=== PATIENT | female | born 1960 | race Hispanic/Latino ===

== ENCOUNTER 2017-03-20 18:20 | Emergency (ER) | payer MEDICARE ==
[2017-03-20 18:21] VITALS: BMI 29.9
[2017-03-20 18:32] VITALS: BP 154/90; PULSE 76; RESP 17; TEMP 97.9; O2SAT 96
--- NOTE | 2017-03-20 19:30 | ED PDOC ---
Arrival/HPI - General Chief Complaint: ENT Problem Time Seen by Provider: 03/20/17 19:09 - History of Present Illness Narrative History of Present Illness (Text): 03/20/17 19:30 56-year-old female with a history of recurrent nosebleeds. Presents emergency Department with epistaxis from her left nostril. Patient states that nosebleed has resolved while she was awaiting to be examined. Patient denies any signs or symptoms of anemia. Denies shortness of breath, denies coughing, denies any other complaints. Patient states that she does not want any Afrin or other drops because she is afraid he may elevate her blood pressure. Patient states that she has an ear nose and throat doctor with whom she will be able to obtain follow-up in the next few days. Past Medical History - Provider Review Nursing Documentation Reviewed: Yes - Infectious Disease Hx of Infectious Diseases: None - Tetanus Immunization Tetanus Immunization: Unknown - Reproductive Menopause: Yes - Cardiac Hx Cardiac Disorders: Yes Hx Hypertension: Yes - Pulmonary Hx Respiratory Disorders: No - Neurological Hx Neurological Disorder: Yes HX Cerebrovascular Accident: Yes - HEENT Hx HEENT Disorder: (WEARS RX GLASSES FOR READING) Hx Epistaxis: Yes - Renal Hx Renal Disorder: No - Endocrine/Metabolic Hx Endocrine Disorders: No - Hematological/Oncological Hx Blood Disorders: No - Integumentary Hx Dermatological Disorder: Yes Other/Comment: 3 fatty cysts removed from right parietal area - Musculoskeletal/Rheumatological Hx Musculoskeletal Disorders: No Hx Falls: No - Gastrointestinal Hx Gastrointestinal Disorders: No - Genitourinary/Gynecological Hx Genitourinary Disorders: No - Psychiatric Hx Psychophysiologic Disorder: Yes (SLEEPLESSNESS) Hx Anxiety: Yes Hx Depression: No Hx Emotional Abuse: No Hx Physical Abuse: No Hx Substance Use: No - Past Surgical History Past Surgical History: No Previous - Surgical History Other/Comment: 3 fatty cysts removed from right parietal area - Suicidal Assessment Feels Threatened In Home Enviroment: No Family/Social History Family/Social History: Unknown Family HX Smoking Status: Never Smoked Hx Alcohol Use: No Hx Substance Use: No Hx Substance Use Treatment: No Allergies/Home Meds Allergies/Adverse Reactions: Allergies No Known Allergies Allergy (Verified 03/20/17 18:27) Home Medications: Home Meds Medication Instructions Recorded Confirmed Alprazolam [Xanax] 0.5 mg PO BID 04/12/13 01/25/15 Zolpidem Tartrate [Ambien] 10 mg PO HS 04/12/13 03/20/17 Aspirin [Aspirin Adult Low 81 mg PO DAILY 09/18/13 03/20/17 Strength] Aliskiren/Hydrochlorothiazide 1 tab PO DAILY 04/05/14 03/20/17 [Tekturna Hct 300 mg-12.5 mg] Clonidine HCl/Pf [Clonidine HCl] 0.1 mg PO TID 04/05/14 03/20/17 Metoprolol Tartrate [Metoprolol 100 mg PO BID 04/05/14 03/20/17 Tartrate] Review of Systems - Physician Review All systems were reviewed & negative as marked: Yes - Review of Systems ENT: Other (Epistaxis). absent: Sore Throat, Rhinorrhea, Sinus Congestion Respiratory: absent: SOB, Cough, Sputum Cardiovascular: absent: Chest Pain, Palpitations Physical Exam Vital Signs Reviewed: Yes Vital Signs Temp Pulse Resp BP Pulse Ox 03/20/17 18:30 97.9 F 76 17 154/90 H 96 Temperature: Afebrile Blood Pressure: Hypertensive (Asymptomatic) Pulse: Regular Respiratory Rate: Normal Appearance: Positive for: Well-Appearing Pain Distress: None Mental Status: Positive for: Alert and Oriented X 3 - Systems Exam Head: Present: Atraumatic, Normocephalic Pupils: Present: PERRL. No: Sluggish, Non-Reactive Conjunctiva: Present: Normal. No: Injected Mouth: Present: Moist Mucous Membranes. No: Dry, Drooling Pharnyx: No: ERYTHEMA, EXUDATE, Muffled/Hoarse Voice, Soft Palate/Uvular Edema Nose (External): No: Abrasion, Contusion, Laceration Nose (Internal): Present: No Active Bleeding. No: Engorged, Edematous, Boggy, Septal Hematoma, Epistaxis Medical Decision Making ED Course and Treatment: 03/20/17 19:36 56-year-old female with history of epistaxis, in the emergency Department with resolved nosebleed. No acute findings on physical examination. Patient will be discharged home with instructions to follow-up with her ear nose and throat physician. Patient is asymptomatic and states that she feels comfortable being discharged at this time. Pt states she understands to return to the ER right away for new or worsening symptoms or for inability to f/u with PMD or specialist as instructed. Patient states that she fully agrees with and understands discharge instructions. States that she agrees with the plan and disposition. Verbalized and repeated discharge instructions and plan. I have given the patient opportunity to ask any additional questions. Disposition/Present on Arrival - Present on Arrival Any Indicators Present on Arrival: No History of DVT/PE: No History of Uncontrolled Diabetes: No Urinary Catheter: No History of Decub. Ulcer: No History Surgical Site Infection Following: None - Disposition Have Diagnosis and Disposition been Completed?: Yes Diagnosis: Epistaxis Disposition: HOME/ ROUTINE Disposition Time: 19:27 Patient Plan: Discharge Condition: GOOD Discharge Instructions (ExitCare): Nosebleed (ED) Additional Instructions: PLEASE RETURN TO THE EMERGENCY DEPARTMENT FOR NEW OR WORSENING SYMPTOMS. RETURN RIGHT AWAY IF YOU CANNOT FOLLOW UP WITH YOUR PRIMARY CARE DOCTOR, CLINIC, OR SPECIALIST IN 1-2 DAYS. Referrals: Niels Dean MD [Primary Care Provider] - Follow up with primary Francisco Arenas DO [Staff Provider] - Follow up with primary
== END 2017-03-20 19:41 | disposition home or self-care (01) ==
LOC: ED 18:20
DX: R04.0 Epistaxis (principal); I10 Essential (primary) hypertension

== ENCOUNTER 2017-03-21 00:50 | Emergency (ER) | payer MEDICARE ==
[2017-03-21 01:02] VITALS: BMI 39.9
[2017-03-21 01:08] VITALS: BP 118/84; PULSE 73; RESP 18; TEMP 98; O2SAT 98
[2017-03-21] MEDS ORDERED: Amoxicillin-Clav 875-125 mg Tab PO STA (01:35)
--- NOTE | 2017-03-21 01:35 | ED PDOC ---
Arrival/HPI - General Chief Complaint: ENT Problem Time Seen by Provider: 03/21/17 00:52 - History of Present Illness Narrative History of Present Illness (Text): 03/21/17 02:17 56-year-old female in emergency department with recurrent nosebleed on the left. Patient states that mostly resolved with applying pressure. She states that she is concerned that it will occur again, and asking for nasal packing. Denies any difficulty breathing, denies any other complaints. Past Medical History - Provider Review Nursing Documentation Reviewed: Yes - Infectious Disease Hx of Infectious Diseases: None - Tetanus Immunization Tetanus Immunization: Unknown - Cardiac Hx Cardiac Disorders: Yes Hx Hypertension: Yes - Pulmonary Hx Respiratory Disorders: No - Neurological Hx Neurological Disorder: Yes HX Cerebrovascular Accident: Yes - HEENT Hx HEENT Disorder: (WEARS RX GLASSES FOR READING) Hx Epistaxis: Yes Other/Comment: Deviated septum - Renal Hx Renal Disorder: No - Endocrine/Metabolic Hx Endocrine Disorders: No - Hematological/Oncological Hx Blood Disorders: No - Integumentary Hx Dermatological Disorder: Yes Other/Comment: 3 fatty cysts removed from right parietal area - Musculoskeletal/Rheumatological Hx Musculoskeletal Disorders: No Hx Falls: No - Gastrointestinal Hx Gastrointestinal Disorders: No - Genitourinary/Gynecological Hx Genitourinary Disorders: No - Psychiatric Hx Psychophysiologic Disorder: Yes (SLEEPLESSNESS) Hx Anxiety: Yes Hx Depression: No Hx Emotional Abuse: No Hx Physical Abuse: No Hx Substance Use: No - Past Surgical History Past Surgical History: No Previous - Surgical History Other/Comment: 3 fatty cysts removed from right parietal area - Suicidal Assessment Feels Threatened In Home Enviroment: No Family/Social History Family/Social History: Unknown Family HX Smoking Status: Never Smoked Hx Alcohol Use: No Hx Substance Use: No Hx Substance Use Treatment: No Allergies/Home Meds Allergies/Adverse Reactions: Allergies No Known Allergies Allergy (Verified 03/20/17 18:27) Home Medications: Home Meds Medication Instructions Recorded Confirmed Alprazolam [Xanax] 0.5 mg PO BID 04/12/13 01/25/15 Zolpidem Tartrate [Ambien] 10 mg PO HS 04/12/13 03/20/17 Aspirin [Aspirin Adult Low 81 mg PO DAILY 09/18/13 03/20/17 Strength] Aliskiren/Hydrochlorothiazide 1 tab PO DAILY 04/05/14 03/20/17 [Tekturna Hct 300 mg-12.5 mg] Clonidine HCl/Pf [Clonidine HCl] 0.1 mg PO TID 04/05/14 03/20/17 Metoprolol Tartrate [Metoprolol 100 mg PO BID 04/05/14 03/20/17 Tartrate] Physical Exam - Physical Exam Narrative Physical Exam (Text): - Review of Systems Constitutional: Normal. absent: Fatigue, Weight Change, Fevers Eyes: Normal ENT: Epistaxis. denies sore throat, denies tristhmus Respiratory: Normal. absent: SOB, Cough, Sputum Cardiovascular: absent: Chest Pain, Palpitations, Syncope Gastrointestinal: Normal. absent: Abdominal Pain, Diarrhea, Nausea, Vomiting Genitourinary: Normal. absent: Dysuria, Frequency, Hematuria, vaginal bleeding Musculoskeletal: Normal. absent: Arthralgias, Back Pain, Neck Pain Skin: no rashes, no erythema Neurological: absent: Focal Weakness Endocrine: Normal Hemo/Lymphatic: Normal Psychiatric: No suicidal or homicidal ideations Physical exam Patient appears age appropriate in no distress, speaking full sentences without difficulty - Systems Exam Head: Present: Atraumatic, Normocephalic Pupils: Present: PERRL Extroacular Muscles: Present: EOMI Conjunctiva: Present: Normal Mouth: Present: Moist Mucous Membranes Neck: Present: Normal Range of Motion. No: MIDLINE TENDERNESS, Paraspinal Tenderness Respiratory/Chest: Present: Clear to Auscultation, Good Air Exchange. No: Respiratory Distress, Accessory Muscle Use, Tachypneic Cardiovascular: Present: Regular Rate and Rhythm, Normal S1, S2, Peripheal Pulses Present. No: Murmurs Abdomen: Present: Normal Bowel Sounds. No: Tenderness, Distention, Peritoneal Signs, Rebound, Guarding Back: Present: Normal Inspection. No: Midline Tenderness, Paraspinal Tenderness Upper Extremity: Present: Normal Inspection. No: Cyanosis, Edema Lower Extremity: Present: Normal Inspection. No: Edema Neurological: Present: GCS=15, Speech Normal, cranial nerves II through XII fully intact with no cerebellar abnormality, neurosensory fully intact. No focal neurological deficits. Skin: Present: Warm, Dry, Normal Color. No: Rashes Lymphatic: Present: OX3, NI, NC Psychiatric: Present: Alert, Oriented x 3, Normal Insight, Normal Concentration Vital Signs Reviewed: Yes Vital Signs Temp Pulse Resp BP Pulse Ox 03/21/17 00:51 98.0 F 73 18 118/84 98 Temperature: Afebrile Blood Pressure: Normal Pulse: Regular Respiratory Rate: Normal Appearance: Positive for: Well-Appearing Pain Distress: None Mental Status: Positive for: Alert and Oriented X 3 - Systems Exam Nose (External): Present: Atraumatic. No: Abrasion, Contusion Nose (Internal): Present: No Active Bleeding, Other (Left nare with dried blood , no active bleeding). No: Rhinorrhea, Epistaxis Medical Decision Making ED Course and Treatment: Patient with recurrent nosebleed. This is patient's second visit for similar complaint today. Patient is asking for nasal packing. Patient states that she has an ENT physician with whom she will follow-up. Nasal packing placed No active bleeding Dose of Augmentin along with a prescription provided in the emergency department Patient states she feels comfortable being discharged home with outpatient follow-up Pt states she understands to return to the ER right away for new or worsening symptoms or for inability to f/u with PMD or specialist as instructed. Patient states that she fully agrees with and understands discharge instructions. States that she agrees with the plan and disposition. Verbalized and repeated discharge instructions and plan. I have given the patient opportunity to ask any additional questions. PROCEDURE: EPISTAXIS MANAGEMENT Performed by the emergency provider Consent: Informed consent was obtained after discussion of the risks, benefits, and alternatives to the procedure. Timeout: A timeout to verify the correct patient, procedure, and site was performed immediately prior to the procedure. Indication: Nasal bleeding control Location: {left/right} naris Medication: Bleeding Source: {POSTERIOR / MIDDLE / ANTERIOR / Septal} Cautery: Packing: Post-procedure: Good hemostasis. The patient was observed following procedure and no repeat episode of bleeding was noted. Patient tolerated the procedure well with no immediate complications. - Medication Orders Current Medication Orders: Discontinued Medications Amoxicillin/Clavulanate Potassium (Augmentin 875 Mg-125 Mg Tab) 1 tab PO STAT STA PRN Reason: Protocol Stop: 03/21/17 01:36 Last Admin: 03/21/17 01:50 Dose: 1 tab Disposition/Present on Arrival - Present on Arrival Any Indicators Present on Arrival: No History of DVT/PE: No History of Uncontrolled Diabetes: No Urinary Catheter: No History of Decub. Ulcer: No History Surgical Site Infection Following: None - Disposition Have Diagnosis and Disposition been Completed?: Yes Diagnosis: Epistaxis Disposition: HOME/ ROUTINE Disposition Time: 01:32 Patient Plan: Discharge Condition: GOOD Discharge Instructions (ExitCare): Nosebleed (ED) Additional Instructions: Please follow-up with your ear nose and throat physician or primary physician for packing removal in the next 48 hours Take Antibiotics as prescribed Return to the emergency Department right away for recurrent nosebleeds, difficulty breathing, pain, or if you are unable to follow-up as instructed. Return to the ER right away for any new or worsening symptoms Prescriptions: Amoxicillin/Clavulanate [Augmentin 875 MG-125 MG] 1 tab PO BID #13 tab Referrals: Francisco Arenas DO [Staff Provider] - Follow up with primary José Miguel Palomares DO [Staff Provider] - Follow up with primary Angel Quezada DO [Doctor Osteopathy] - Follow up with primary
== END 2017-03-21 02:00 | disposition home or self-care (01) ==
LOC: ED 00:50
DX: R04.0 Epistaxis (principal)

== ENCOUNTER 2017-03-21 02:49 | Emergency (ER) | payer MEDICARE ==
[2017-03-21 02:49] VITALS: BMI 39.9
[2017-03-21 03:16] LABS: ADD MANUAL DIFF? NO
[2017-03-21 03:19] LABS: BASO # 0.03 K/mm3 (0.0-2.0); BASO % 0.3 % (0.0-3.0); EOS # 0.1 (0.0-0.7); EOS % 1.4 % (1.5-5.0); GRAN # 6.23 (1.4-6.5); GRAN % 70.8 % (50.0-68.0); HEMATOCRIT 42.7 % (36.0-48.0); LYMPH # 1.9 (1.2-3.4); MEAN CELL VOLUME 87.5 fL (80.0-105.0); MEAN CORPUSCULAR HEMOGLOBIN 31.1 pg (25.0-35.0); MEAN CORPUSCULAR HGB CONC 35.6 g/dl (31.0-37.0); MONO # 0.5 (0.1-0.6); MONO % 5.5 % (1.0-6.0); PLATELET COUNT 261 10^3/uL (120.0-450.0); RED CELL DISTRIBUTION WIDTH 13.9 % (11.5-14.5); WHITE BLOOD COUNT 8.8 10^3/ul (4.5-11.0)
[2017-03-21 03:22] VITALS: RESP 17; TEMP 98.2
[2017-03-21 03:28] LABS: ALKALINE PHOSPHATASE 58 U/L (38-133); ALT/SGPT 91 U/L (7-56); AST/SGOT 55 U/L (15-39); BLOOD UREA NITROGEN 21 mg/dL (7-21); CALCIUM 9.6 mg/dL (8.4-10.5); CARBON DIOXIDE 30 mmol/L (21-33); CHLORIDE 99 mmol/L (98-107); GFR AFRICAN-AMERICAN > 60; GLUCOSE,RANDOM 116 mg/dL (70-110); POTASSIUM 3.8 mmol/L (3.6-5.0); SODIUM 138 mmol/L (132-148); TOTAL PROTEIN 8.5 g/dL (5.8-8.3)
[2017-03-21 03:32] LABS: INR 1.13 (0.93-1.08); PARTIAL THROMBOPLASTIN TIME 29.5 Seconds (23.7-30.8)
--- NOTE | 2017-03-21 03:46 | ED PDOC ---
Arrival/HPI - General Chief Complaint: ENT Problem Time Seen by Provider: 03/21/17 02:55 - History of Present Illness Narrative History of Present Illness (Text): 03/21/17 03:42 56-year-old female presents emergency Department with left hemolacria after left nasal packing placement. Patient states she has no epistaxis at this time. Patient has no other complaints. Denies shortness of breath or pain or difficulty swallowing. Symptom Onset: Sudden Symptom Course: Unchanged Activities at Onset: Rest Context: Home Past Medical History - Provider Review Nursing Documentation Reviewed: Yes - Infectious Disease Hx of Infectious Diseases: None - Tetanus Immunization Tetanus Immunization: Unknown - Cardiac Hx Cardiac Disorders: Yes Hx Hypertension: Yes - Pulmonary Hx Respiratory Disorders: No - Neurological Hx Neurological Disorder: Yes HX Cerebrovascular Accident: Yes - HEENT Hx HEENT Disorder: (WEARS RX GLASSES FOR READING) Hx Epistaxis: Yes Other/Comment: Deviated septum - Renal Hx Renal Disorder: No - Endocrine/Metabolic Hx Endocrine Disorders: No - Hematological/Oncological Hx Blood Disorders: No - Integumentary Hx Dermatological Disorder: Yes Other/Comment: 3 fatty cysts removed from right parietal area - Musculoskeletal/Rheumatological Hx Musculoskeletal Disorders: No Hx Falls: No - Gastrointestinal Hx Gastrointestinal Disorders: No - Genitourinary/Gynecological Hx Genitourinary Disorders: No - Psychiatric Hx Psychophysiologic Disorder: Yes (SLEEPLESSNESS) Hx Anxiety: Yes Hx Depression: No Hx Emotional Abuse: No Hx Physical Abuse: No Hx Substance Use: No - Past Surgical History Past Surgical History: No Previous - Surgical History Other/Comment: 3 fatty cysts removed from right parietal area - Suicidal Assessment Feels Threatened In Home Enviroment: No Family/Social History - Physician Review Nursing Documentation Reviewed: Yes Family/Social History: No Known Family HX Smoking Status: Never Smoked Hx Alcohol Use: No Hx Substance Use: No Hx Substance Use Treatment: No Allergies/Home Meds Allergies/Adverse Reactions: Allergies No Known Allergies Allergy (Verified 03/20/17 18:27) Home Medications: Home Meds Medication Instructions Recorded Confirmed Alprazolam [Xanax] 0.5 mg PO BID 04/12/13 01/25/15 Zolpidem Tartrate [Ambien] 10 mg PO HS 04/12/13 03/20/17 Aspirin [Aspirin Adult Low 81 mg PO DAILY 09/18/13 03/20/17 Strength] Aliskiren/Hydrochlorothiazide 1 tab PO DAILY 04/05/14 03/20/17 [Tekturna Hct 300 mg-12.5 mg] Clonidine HCl/Pf [Clonidine HCl] 0.1 mg PO TID 04/05/14 03/20/17 Metoprolol Tartrate [Metoprolol 100 mg PO BID 04/05/14 03/20/17 Tartrate] Review of Systems - Physician Review All systems were reviewed & negative as marked: Yes Physical Exam - Physical Exam Narrative Physical Exam (Text): - Review of Systems Constitutional: Normal. absent: Fatigue, Weight Change, Fevers Eyes: hemolacria ENT: denies sore throat, denies tristhmus Respiratory: Normal. absent: SOB, Cough, Sputum Cardiovascular: absent: Chest Pain, Palpitations, Syncope Gastrointestinal: Normal. absent: Abdominal Pain, Diarrhea, Nausea, Vomiting Genitourinary: Normal. absent: Dysuria, Frequency, Hematuria, vaginal bleeding Musculoskeletal: Normal. absent: Arthralgias, Back Pain, Neck Pain Skin: no rashes, no erythema Neurological: absent: Focal Weakness Endocrine: Normal Hemo/Lymphatic: Normal Psychiatric: No suicidal or homicidal ideations Physical exam Patient appears age appropriate in no distress, speaking full sentences without difficulty - Systems Exam Head: Present: Atraumatic, Normocephalic Pupils: Present: PERRL Extroacular Muscles: Present: EOMI Conjunctiva: Present: Trace blood present around upper and lower eyelids Mouth: Present: Moist Mucous Membranes Neck: Present: Normal Range of Motion. No: MIDLINE TENDERNESS, Paraspinal Tenderness Respiratory/Chest: Present: Clear to Auscultation, Good Air Exchange. No: Respiratory Distress, Accessory Muscle Use, Tachypneic Cardiovascular: Present: Regular Rate and Rhythm, Normal S1, S2, Peripheal Pulses Present. No: Murmurs Abdomen: Present: Normal Bowel Sounds. No: Tenderness, Distention, Peritoneal Signs, Rebound, Guarding Back: Present: Normal Inspection. No: Midline Tenderness, Paraspinal Tenderness Upper Extremity: Present: Normal Inspection. No: Cyanosis, Edema Lower Extremity: Present: Normal Inspection. No: Edema Neurological: Present: GCS=15, Speech Normal, cranial nerves II through XII fully intact with no cerebellar abnormality, neurosensory fully intact. No focal neurological deficits. Skin: Present: Warm, Dry, Normal Color. No: Rashes Lymphatic: Present: OX3, NI, NC Psychiatric: Present: Alert, Oriented x 3, Normal Insight, Normal Concentration Vital Signs Reviewed: Yes Vital Signs Temp Pulse Resp BP Pulse Ox 03/21/17 03:21 98.2 F 65 17 120/86 95 Temperature: Afebrile Blood Pressure: Normal Pulse: Regular Respiratory Rate: Normal Appearance: Positive for: Well-Appearing Pain Distress: None Mental Status: Positive for: Alert and Oriented X 3 - Systems Exam Nose (Internal): No: Epistaxis Medical Decision Making ED Course and Treatment: 03/21/17 03:46 56-year-old female with left hemolacria after left nasal packing placement Hemoglobin and coagulation labs ordered Chest xray: Chest xray shows no cardiomegaly, no pneumothorax, no effusion, no infiltrates. ENT on-call paged, awaiting callback Patient has been made aware that it is important to follow up outpatient with her primary physician and ENT specialist as this could be a feature of an underlying condition such as hereditary hemorrhagic telangiectasia, which need further workup Patient states that she fully understands the above discussion and will follow- up as instructed and next few days. 03/21/17 05:[address] Palomares, ENT, in detail. states to dc pt home with outpatient f/ u pt with no active bleeding at this time and denies complaints states she feels comfortable being dc'd home with outpatient f/u Pt states she understands to return to the ER right away for new or worsening symptoms or for inability to f/u with PMD or specialist as instructed. Patient states that she fully agrees with and understands discharge instructions. States that she agrees with the plan and disposition. Verbalized and repeated discharge instructions and plan. I have given the patient opportunity to ask any additional questions. - Lab Interpretations Lab Results: 03/21/17 03:10 03/21/17 03:10 Lab Results 03/21/17 03:10: Sodium 138, Potassium 3.8, Chloride 99, Carbon Dioxide 30, Anion Gap 13, BUN 21, Creatinine 0.9, Est GFR ( Amer) > 60, Est GFR (Non- Af Amer) > 60, Random Glucose 116 H, Calcium 9.6, Total Bilirubin 1.0, AST 55 H , ALT 91 H, Alkaline Phosphatase 58, Total Protein 8.5 H, Albumin 4.3, Globulin 4.2, Albumin/Globulin Ratio 1.0 L 03/21/17 03:10: PT 12.2 H, INR 1.13 H, APTT 29.5 03/21/17 03:10: WBC 8.8 D, RBC 4.88, Hgb 15.2, Hct 42.7, MCV 87.5, MCH 31.1, MCHC 35.6, RDW 13.9, Plt Count 261, MPV 9.0, Gran % 70.8 H, Lymph % (Auto) 22.0 , [place] % (Auto) 5.5, Eos % (Auto) 1.4 L, Baso % (Auto) 0.3, Gran # 6.23, Lymph # 1.9, [place] # 0.5, Eos # 0.1, Baso # 0.03 - RAD Interpretation Radiology Orders: 03/21/17 03:01 CHEST PORTABLE [RAD] Stat - Scribe Statement Vasile Reilly All medical record entries made by the Scribe were at my direction and personally dictated by me. I have reviewed the chart and agree that the record accurately reflects my personal performance of the history, physical exam, medical decision making, and the department course for this patient. I have also personally directed, reviewed, and agree with the discharge instructions and disposition. Disposition/Present on Arrival - Present on Arrival Any Indicators Present on Arrival: No History of DVT/PE: No History of Uncontrolled Diabetes: No Urinary Catheter: No History of Decub. Ulcer: No History Surgical Site Infection Following: None - Disposition Have Diagnosis and Disposition been Completed?: Yes Diagnosis: Epistaxis Disposition: HOME/ ROUTINE Disposition Time: 05:40 Patient Plan: Discharge Condition: GOOD Discharge Instructions (ExitCare): Nosebleed (ED) Additional Instructions: Please continue taking the antibiotics as prescribed PLEASE RETURN TO THE EMERGENCY DEPARTMENT FOR NEW OR WORSENING SYMPTOMS. RETURN RIGHT AWAY IF YOU CANNOT FOLLOW UP WITH YOUR PRIMARY CARE DOCTOR, CLINIC, OR SPECIALIST IN 1-2 DAYS. Referrals: José Miguel Palomares DO [Staff Provider] - Follow up with primary Francisco Arenas DO [Staff Provider] - Follow up with primary
[2017-03-21 05:31] VITALS: BP 118/72; PULSE 60; O2SAT 98
--- NOTE | 2017-03-21 10:53 | RAD ---
HISTORY: admission COMPARISON: 04/05/2014 FINDINGS: LUNGS: No active pulmonary disease. PLEURA: No significant pleural effusion identified, no pneumothorax apparent. CARDIOVASCULAR: Normal. OSSEOUS STRUCTURES: No significant abnormalities. VISUALIZED UPPER ABDOMEN: Normal. OTHER FINDINGS: None. IMPRESSION: No active disease.
== END 2017-03-21 05:50 | disposition home or self-care (01) ==
LOC: ED 02:49
DX: R04.0 Epistaxis (principal); I10 Essential (primary) hypertension

== ENCOUNTER 2017-03-23 19:03 | Emergency (ER) | payer MEDICARE ==
[2017-03-23 19:13] VITALS: TEMP 98.3; BMI 38.2
--- NOTE | 2017-03-23 20:58 | ED PDOC ---
Arrival/HPI - General Chief Complaint: ENT Problem Time Seen by Provider: 03/23/17 19:06 Historian: Patient - History of Present Illness Narrative History of Present Illness (Text): 03/23/17 20:58 Ambreen Morris is a 56 year old female who presents to the emergency department complaining of unresolved nose bleed from left nares. Patient was seen 2 days prior for left nosebleed and haemolacria at [facility] and was discharged home after bleeding stopped with nasal tampon. States he followed up with ENT today and was told that the nasal tampon cannot be removed at that time. However, states that tampon fell out today evening and started bleeding again. Denies any fever, chills,chest pain, shortness of breath, nausea , vomiting, diarrhea, or any other complaints at this time. Time/Duration: < week (3 days ) Symptom Course: Intermittent Severity Level: Mild Activities at Onset: Light Past Medical History - Provider Review Nursing Documentation Reviewed: Yes - Infectious Disease Hx of Infectious Diseases: None - Tetanus Immunization Tetanus Immunization: Unknown - Cardiac Hx Cardiac Disorders: Yes Hx Hypertension: Yes - Pulmonary Hx Respiratory Disorders: No - Neurological Hx Neurological Disorder: Yes HX Cerebrovascular Accident: Yes - HEENT Hx HEENT Disorder: (WEARS RX GLASSES FOR READING) Hx Epistaxis: Yes Other/Comment: Deviated septum - Renal Hx Renal Disorder: No - Endocrine/Metabolic Hx Endocrine Disorders: No - Hematological/Oncological Hx Blood Disorders: No - Integumentary Hx Dermatological Disorder: Yes Other/Comment: 3 fatty cysts removed from right parietal area - Musculoskeletal/Rheumatological Hx Musculoskeletal Disorders: No Hx Falls: No - Gastrointestinal Hx Gastrointestinal Disorders: No - Genitourinary/Gynecological Hx Genitourinary Disorders: No - Psychiatric Hx Psychophysiologic Disorder: Yes (SLEEPLESSNESS) Hx Anxiety: Yes Hx Depression: No Hx Emotional Abuse: No Hx Physical Abuse: No Hx Substance Use: No - Past Surgical History Past Surgical History: No Previous - Surgical History Other/Comment: 3 fatty cysts removed from right parietal area - Anesthesia Hx Anesthesia: Yes Hx Anesthesia Reactions: No - Suicidal Assessment Feels Threatened In Home Enviroment: No Family/Social History - Physician Review Nursing Documentation Reviewed: Yes Family/Social History: No Known Family HX Smoking Status: Never Smoked Hx Alcohol Use: No Hx Substance Use: No Hx Substance Use Treatment: No Allergies/Home Meds Allergies/Adverse Reactions: Allergies No Known Allergies Allergy (Verified 03/23/17 19:13) Home Medications: Home Meds Medication Instructions Recorded Confirmed Alprazolam [Xanax] 0.5 mg PO BID 04/12/13 01/25/15 Zolpidem Tartrate [Ambien] 10 mg PO HS 04/12/13 03/20/17 Aspirin [Aspirin Adult Low 81 mg PO DAILY 09/18/13 03/20/17 Strength] Aliskiren/Hydrochlorothiazide 1 tab PO DAILY 04/05/14 03/20/17 [Tekturna Hct 300 mg-12.5 mg] Clonidine HCl/Pf [Clonidine HCl] 0.1 mg PO TID 04/05/14 03/20/17 Metoprolol Tartrate [Metoprolol 100 mg PO BID 04/05/14 03/20/17 Tartrate] Review of Systems - Physician Review All systems were reviewed & negative as marked: Yes - Review of Systems Constitutional: Normal. absent: Fatigue, Fevers ENT: Epistaxis (left nares ) Respiratory: Normal. absent: SOB, Cough, Sputum Cardiovascular: Normal. absent: Chest Pain, Palpitations Gastrointestinal: Normal. absent: Abdominal Pain, Diarrhea, Nausea, Vomiting Genitourinary Female: Normal Neurological: Normal. absent: Headache, Dizziness Psychiatric: Normal Physical Exam Vital Signs Reviewed: Yes Vital Signs Temp Pulse Resp BP Pulse Ox 03/24/17 00:00 86 16 117/78 98 03/23/17 21:50 90 16 132/86 97 03/23/17 19:14 98.3 F 92 H 16 129/93 H 97 03/23/17 19:13 98.3 F 92 H 16 129/93 H 97 Temperature: Afebrile Blood Pressure: Normal Pulse: Regular Respiratory Rate: Normal Appearance: Positive for: Well-Appearing, Non-Toxic, Comfortable Pain Distress: None Mental Status: Positive for: Alert and Oriented X 3 - Systems Exam Head: Present: Atraumatic, Normocephalic Pupils: Present: PERRL Extroacular Muscles: Present: EOMI Conjunctiva: Present: Normal Mouth: Present: Moist Mucous Membranes. No: Dry, Drooling Nose (Internal): Present: Epistaxis (left anterior nares ) Neck: Present: Normal Range of Motion Respiratory/Chest: Present: Clear to Auscultation, Good Air Exchange. No: Respiratory Distress, Accessory Muscle Use Cardiovascular: Present: Regular Rate and Rhythm, Normal S1, S2. No: Murmurs Abdomen: Present: Normal Bowel Sounds. No: Tenderness, Distention, Peritoneal Signs, Rebound, Guarding Upper Extremity: Present: Normal Inspection. No: Cyanosis, Edema Lower Extremity: Present: Normal Inspection. No: Edema Neurological: Present: GCS=15, CN II-XII Intact, Speech Normal, Motor Func Grossly Intact, Normal Sensory Function Skin: Present: Warm, Dry, Normal Color. No: Rashes Psychiatric: Present: Alert, Oriented x 3, Normal Insight, Normal Concentration Medical Decision Making ED Course and Treatment: 03/23/17 21:07 Impression: A 56 year old female who presents to the emergency department complaining of left nares bleeding. Plan: Progress Notes: Bleeding stopped and repacking left nares with Rapid rhino. Good hemostasis. 03/24/17 01:33 Patient with no recurrent bleeding in the emergency department. Case discussed with ENT, . Patient will f/u with as instructed. - Medication Orders Current Medication Orders: Discontinued Medications Acetaminophen (Tylenol 325mg Tab) 650 mg PO STAT STA Stop: 03/23/17 22:32 Last Admin: 03/23/17 22:39 Dose: 650 mg Re-Assess: CHAZ Pain/Vitals Document 03/23/17 23:39 YP (Rec: 03/24/17 00:05 YP [id number]) Pain Reassessment Is This A Pain ReAssessment? Yes Sleep Is patient sleeping during reassessment? No Presence of Pain Presence of Pain Yes Tramadol HCl (Ultram) 50 mg PO STAT STA Stop: 03/24/17 00:02 Last Admin: 03/24/17 00:07 Dose: 50 mg - Scribe Statement The provider has reviewed the documentation as recorded by the Jacoby Poole Provider Attestation: All medical record entries made by the Jacoby were at my direction and personally dictated by me. I have reviewed the chart and agree that the record accurately reflects my personal performance of the history, physical exam, medical decision making, and the department course for this patient. I have also personally directed, reviewed, and agree with the discharge instructions and disposition. Disposition/Present on Arrival - Present on Arrival Any Indicators Present on Arrival: No History of DVT/PE: No History of Uncontrolled Diabetes: No Urinary Catheter: No History of Decub. Ulcer: No History Surgical Site Infection Following: None - Disposition Have Diagnosis and Disposition been Completed?: Yes Diagnosis: Epistaxis Disposition: HOME/ ROUTINE Disposition Time: : Patient Plan: Discharge Condition: GOOD Discharge Instructions (ExitCare): Nosebleed (ED) Additional Instructions: Maintain nasal pack/continue antibiotics as previously prescribed/follow up with your ear/nose/throat doctor as instructed Referrals: Cristhian Mcdonald DO [Staff Provider] - Follow up with primary
[2017-03-24 01:47] VITALS: BP 145/93; PULSE 82; RESP 18; O2SAT 99
== END 2017-03-24 01:47 | disposition home or self-care (01) ==
LOC: ED 19:03
DX: R04.0 Epistaxis (principal)

== ENCOUNTER 2017-03-25 17:17 | Emergency (ER) | payer MEDICARE ==
[2017-03-25 17:17] VITALS: BMI 38.2
[2017-03-25] MEDS ORDERED: TETRACAINE/BENZOCAINE/BUTAMBEN 20 GM SPRAY TP STA (17:43)
[2017-03-25] MEDS ORDERED: Oxymetazoline 0.05% Nasal Spray (30 ml) NS STA (17:43)
--- NOTE | 2017-03-25 17:55 | ED PDOC ---
Arrival/HPI - General Historian: Patient - History of Present Illness Time/Duration: Prior to Arrival Symptom Onset: Sudden Symptom Course: Unchanged <Joaquim Ibrahim - Last Filed: 03/25/17 18:35> <Josué Saez - Last Filed: 03/25/17 18:44> - General Chief Complaint: ENT Problem Time Seen by Provider: 03/25/17 17:21 - History of Present Illness Narrative History of Present Illness (Text): 56 year old female with pmh of CVA (with R sided weakness) and HTN presents to the ED complaining of L nose bleed. Pt was here multiple times in the past few days for similar complaint. Pt was here 5 days ago and nasal tampon was placed. She saw Dr Chen which stated to keep the Nasal tampon in place. Pt came Back to the ED with nose bleeds and it is unclear if she removed the packing at home. She presents today for nose bleed for the past half hour. Pt states that she has placed pressure but it has not stopped the bleeding. She is unsure if the packing is in place. She states that she was on Aspirin but she stopped taking it once her nose bleeds started 5 days ago. 03/25/17 18:16 (Joaquim Ibrahim) Past Medical History - Provider Review Nursing Documentation Reviewed: Yes - Infectious Disease Hx of Infectious Diseases: None - Tetanus Immunization Tetanus Immunization: Unknown - Cardiac Hx Cardiac Disorders: Yes Hx Hypertension: Yes - Pulmonary Hx Respiratory Disorders: No - Neurological Hx Neurological Disorder: Yes HX Cerebrovascular Accident: Yes - HEENT Hx HEENT Disorder: (WEARS RX GLASSES FOR READING) Hx Epistaxis: Yes Other/Comment: Deviated septum - Renal Hx Renal Disorder: No - Endocrine/Metabolic Hx Endocrine Disorders: No - Hematological/Oncological Hx Blood Disorders: No - Integumentary Hx Dermatological Disorder: Yes Other/Comment: 3 fatty cysts removed from right parietal area - Musculoskeletal/Rheumatological Hx Musculoskeletal Disorders: No Hx Falls: No - Gastrointestinal Hx Gastrointestinal Disorders: No - Genitourinary/Gynecological Hx Genitourinary Disorders: No - Psychiatric Hx Psychophysiologic Disorder: Yes (SLEEPLESSNESS) Hx Anxiety: Yes Hx Depression: No Hx Emotional Abuse: No Hx Physical Abuse: No Hx Substance Use: No - Past Surgical History Past Surgical History: No Previous - Surgical History Other/Comment: 3 fatty cysts removed from right parietal area - Anesthesia Hx Anesthesia: Yes Hx Anesthesia Reactions: No - Suicidal Assessment Feels Threatened In Home Enviroment: No <Joaquim Ibrahim - Last Filed: 03/25/17 18:35> Family/Social History Family/Social History: No Known Family HX Smoking Status: Never Smoked Hx Alcohol Use: No Hx Substance Use: No Hx Substance Use Treatment: No <Joaquim Ibrahim - Last Filed: 03/25/17 18:35> Allergies/Home Meds <Joaquim Ibrahim - Last Filed: 03/25/17 18:35> <SeJosué Veronika - Last Filed: 03/25/17 18:44> Allergies/Adverse Reactions: Allergies No Known Allergies Allergy (Verified 03/25/17 18:04) Home Medications: Home Meds Medication Instructions Recorded Confirmed Alprazolam [Xanax] 0.5 mg PO BID 04/12/13 03/25/17 Zolpidem Tartrate [Ambien] 10 mg PO HS 04/12/13 03/25/17 Aliskiren/Hydrochlorothiazide 1 tab PO DAILY 04/05/14 03/25/17 [Tekturna Hct 300 mg-12.5 mg] Clonidine HCl/Pf [Clonidine HCl] 0.1 mg PO QID 04/05/14 03/25/17 Metoprolol Tartrate [Metoprolol 100 mg PO BID 04/05/14 03/25/17 Tartrate] Review of Systems - Review of Systems Constitutional: absent: Fatigue, Fevers Eyes: absent: Vision Changes ENT: Epistaxis. absent: Hearing Changes Respiratory: absent: SOB, Cough Cardiovascular: absent: Chest Pain, Palpitations Gastrointestinal: absent: Abdominal Pain, Diarrhea, Nausea, Vomiting Genitourinary Female: absent: Dysuria, Frequency Musculoskeletal: absent: Arthralgias Skin: absent: Rash Neurological: absent: Headache, Dizziness, Focal Weakness Psychiatric: absent: Anxiety <Joaquim Ibrahim - Last Filed: 03/25/17 18:35> Physical Exam Pain Distress: None Mental Status: Positive for: Alert and Oriented X 3 - Systems Exam Head: Present: Atraumatic, Normocephalic Pupils: Present: PERRL Extroacular Muscles: Present: EOMI Mouth: Present: Moist Mucous Membranes Nose (External): Present: Other (prior nasal packing in place; L nostril bleeding) Nose (Internal): Present: Epistaxis Respiratory/Chest: Present: Clear to Auscultation, Good Air Exchange. No: Respiratory Distress, Accessory Muscle Use Cardiovascular: Present: Regular Rate and Rhythm, Normal S1, S2. No: Murmurs Abdomen: Present: Normal Bowel Sounds. No: Tenderness, Distention, Peritoneal Signs Back: Present: Normal Inspection Upper Extremity: Present: Normal Inspection. No: Cyanosis, Edema Lower Extremity: Present: Normal Inspection. No: CALF TENDERNESS Neurological: Present: GCS=15, CN II-XII Intact, Other (R sided weakness fromk prior stroke ) Skin: Present: Warm, Dry, Normal Color. No: Rashes Psychiatric: Present: Alert, Oriented x 3, Normal Insight, Normal Concentration <Joaquim Ibrahim - Last Filed: 03/25/17 18:35> Medical Decision Making <Joaquim Ibrahim - Last Filed: 03/25/17 18:35> <Josué Saez - Last Filed: 03/25/17 18:44> ED Course and Treatment: Impression: 56 F with pmh of CVA (R sided weakness) and HTN presents with L sided nose bleed. Plan: - CBC - ENT consult - Pain control DD: Epistaxis Progress note: - ENT - Dr Chen was called and will come in. will f/u rcs Packing readjusted and inflated. Will reevaluate bleeding. 03/25/17 18:22 Tylenol given for the pain. (Joaquim Ibrahim) 03/25/17 18:27 56 yo female presents with reoccurring nose bleed. Agree with resident history and exam. Agree with plan. I discussed case with Dr. Chen, ENT who will send one of his residents to evaluate patient. Resident Christy called back and states she will come to evaluate patient. Case signed out to Dr. Spears to f/u labs, ENT, reevaluate and disposition. ( Josué Saez) - Medication Orders Current Medication Orders: Discontinued Medications Acetaminophen (Tylenol 325mg Tab) 650 mg PO STAT STA Stop: 03/25/17 18:22 Last Admin: 03/25/17 18:35 Dose: Not Given Non-Admin Reason: Patient Refused - PA / [employer]IVE / Resident Statement MD/DO has examined the patient and agrees with the treatment plan. <Josué Saez - Last Filed: 03/25/17 18:44> Disposition/Present on Arrival - Present on Arrival Any Indicators Present on Arrival: No History of DVT/PE: No History of Uncontrolled Diabetes: No Urinary Catheter: No History Surgical Site Infection Following: None - Disposition Have Diagnosis and Disposition been Completed?: Yes Disposition Time: 06:35 <Joaquim Ibrahim - Last Filed: 03/25/17 18:35> - Present on Arrival Any Indicators Present on Arrival: No - Disposition Have Diagnosis and Disposition been Completed?: Yes <Josué Saez - Last Filed: 03/25/17 18:44> - Disposition Diagnosis: Epistaxis Patient Problems: Current Active Problems Problem Status Onset Epistaxis Acute Condition: IMPROVED
[2017-03-25 18:06] VITALS: TEMP 98
[2017-03-25 18:31] LABS: ADD MANUAL DIFF? NO
[2017-03-25 18:44] LABS: BASO # 0.04 K/mm3 (0.0-2.0); BASO % 0.5 % (0.0-3.0); EOS # 0.1 (0.0-0.7); EOS % 1.3 % (1.5-5.0); GRAN # 5.73 (1.4-6.5); GRAN % 74.1 % (50.0-68.0); HEMATOCRIT 43.7 % (36.0-48.0); LYMPH # 1.4 (1.2-3.4); LYMPH % 17.8 % (22.0-35.0); MEAN CELL VOLUME 88.6 fL (80.0-105.0); MEAN PLATELET VOLUME 9.4 fl (7.0-11.0); MONO # 0.5 (0.1-0.6); MONO % 6.3 % (1.0-6.0); PLATELET COUNT 294 10^3/uL (120.0-450.0); RED CELL DISTRIBUTION WIDTH 13.6 % (11.5-14.5); WHITE BLOOD COUNT 7.7 10^3/ul (4.5-11.0)
--- NOTE | 2017-03-25 19:16 | ED PDOC ---
Physical Exam Vital Signs Reviewed: Yes Vital Signs Temp Pulse Resp BP Pulse Ox 03/25/17 17:48 98 F 78 20 155/95 H 94 L Temperature: Afebrile Blood Pressure: Normal Pulse: Regular Respiratory Rate: Normal Appearance: Positive for: Well-Appearing, Non-Toxic, Comfortable Pain Distress: None Mental Status: Positive for: Alert and Oriented X 3 Medical Decision Making ED Course and Treatment: 03/25/17 19:00 Case endorsed to me by Dr. Saze, pending labs, ENT, reevaluate and disposition.seen by ent in ed pt stable for dc, pt refuses to use drip pad 03/28/17 19:20 - Lab Interpretations Lab Results: 03/25/17 18:20 Lab Results 03/25/17 18:20: WBC 7.7, RBC 4.93, Hgb 15.3, Hct 43.7, MCV 88.6, MCH 31.0, MCHC 35.0, RDW 13.6, Plt Count 294, MPV 9.4, Gran % 74.1 H, Lymph % (Auto) 17.8 L, [place] % (Auto) 6.3 H, Eos % (Auto) 1.3 L, Baso % (Auto) 0.5, Gran # 5.73, Lymph # 1.4, [place] # 0.5, Eos # 0.1, Baso # 0.04 - Medication Orders Current Medication Orders: Discontinued Medications Acetaminophen (Tylenol 325mg Tab) 650 mg PO STAT STA Stop: 03/25/17 18:22 Last Admin: 03/25/17 18:35 Dose: Not Given Non-Admin Reason: Patient Refused Tramadol HCl (Ultram) 50 mg PO STAT STA Stop: 03/25/17 18:50 Last Admin: 03/25/17 18:55 Dose: 50 mg Disposition/Present on Arrival - Present on Arrival Any Indicators Present on Arrival: No History of DVT/PE: No History of Uncontrolled Diabetes: No Urinary Catheter: No History of Decub. Ulcer: No History Surgical Site Infection Following: None - Disposition Have Diagnosis and Disposition been Completed?: Yes Diagnosis: Epistaxis Disposition: HOME/ ROUTINE Disposition Time: 21:45 Condition: GOOD Discharge Instructions (ExitCare): Nosebleed (ED) Referrals: Mems-ID Suresh Wang, [Non-Staff] - Follow up with primary
[2017-03-25 21:47] VITALS: BP 131/67; PULSE 82; RESP 17; O2SAT 97
--- NOTE | 2017-03-31 08:06 | CON ---
DATE: 03/25/2017 EAR, NOSE AND THROAT CONSULT CONSULTING PHYSICIAN: Dr. Cristhian Mcdonald. REFERRING PHYSICIAN: Dr. Antonino Spears. REASON FOR CONSULTATION: Epistaxis. HISTORY OF PRESENT ILLNESS: This is a 56-year-old female with a past medical history of cerebrovascu lar accident with residual right-sided weakness, hypertension and previous epistaxis who presents to the Emergency Room today complaining of epistaxis from her left nose as an outpatient. Was in the Em ergency Room multiple times in the past few days for similar complaints. She was packed about 5 days ago with a 7.5 Rapid Rhino in her left naris. Three days later she states that the packing fell out and she came to see us in the office. The packing was reinserted and the patient was instructed to follow up as an outpatient; however, she presents today because she says that her nose that keeps dri pping from the left side and also from the right side at times and she has not been able to stop it w ith pressure. In the Emergency Room, she has been evaluated and due to the continued bleeding, ear, nose, and throat service was consulted. Upon examination, the patient is stable. She keeps dabbing at her nose and she does have a little bit of oozing from the left side with a Rapid Rhino plac ed. She endorses the history above and also states that she has been very anxious lately due to a lo ss of a close friend. She thinks that this additional stress has been adding to her epistaxis issues . She also endorses that she has had issues with epistaxis in the distant past, but nothing like the present situation. She denies any chest pain, shortness of breath, nausea, vomiting, dizziness or d iarrhea. Denies any other ENT complaints at this point. PAST MEDICAL HISTORY: As above. PAST SURGICAL HISTORY: Is none. SOCIAL HISTORY: She denies smoking and denies drinking. ALLERGIES: She has no known drug allergies. MEDICATIONS: She takes Xanax 0.5 mg p.o. b.i.d., Ambien 10 mg p.o. at bedtime, /hydrochlorothia zide 1 tab p.o. daily, clonidine 0.1 mg p.o. q.i.d. and metoprolol 100 mg p.o. b.i.d. REVIEW OF SYSTEMS: Negative as per HPI. PHYSICAL EXAMINATION: HER VITAL SIGNS: Temperature of 98, pulse rate 78, blood pressure 155/95, respiratory rate of 20 and O2 sat is 97% on room air. GENERAL: She is awake, alert and oriented x 3. She is in mild distress and anxious-appearing. HEAD: Atraumatic and normocephalic. EARS: Canals are patent bilaterally. There is no hemotympanum. Behind the right tympanic membrane i s a small amount of hemotympanum. Behind the left tympanic membrane . She has a 7.5 Rapid Rhin o placed in the left naris with the balloon not fully inflated. She does have a little bit of oozing from the left naris and no active bleeding. The right naris is patent. No epistaxis, no discharge a nd no bleeding vessels seen. ORAL CAVITY: Oropharynx/oral cavity: Tongue is mobile and midline. Mucosa is moist. Uvula is midli ne. Soft palate is symmetrical. There is some dried old blood in the posterior oropharynx. No acti ve bleeding seen. NECK: Supple, nontender, no lymphadenopathy and no thyromegaly. LUNGS: Respirations -- nonlabored breathing. RADIOLOGY: There is no radiology. LABORATORY DATA: Her WBC is 7.7, RBC is 4.93, hemoglobin 15.3, hematocrit 43.7 and platelets 294. ASSESSMENT AND PLAN: This is a 56-year-old female with left-sided epistaxis presently packed with a 7.5 Rhino on the left side. PLAN: The Rhino was evaluated and pushed more posteriorly. In addition, the balloon was inflated. The patient was instructed to wear a drip pad should there be any more dripping from the nose; remi mclain, after repositioning the Rapid Rhino it seems that the oozing from the nose has stopped. The patie nt was instructed to avoid straining and avoid sneezing. If she has to sneeze, sneeze with mouth ope n and taking it easy for the next couple of days. No strenuous activity. The patient was instructed to follow up in the office tomorrow so that the packing can be either removed or reevaluated. She v erbalized understanding and is willing to follow up as an outpatient. Cristhian Mcdonald DO cc: [id number] TT: 03/30/2017 20:42:50 Confirmation # [id number] Dictation # [id number]
== END 2017-03-25 21:46 | disposition home or self-care (01) ==
LOC: ED 17:17
DX: R04.0 Epistaxis (principal)

== ENCOUNTER 2018-03-13 11:00 | Observation (INO) | payer MEDICARE ==
[2018-03-13] MEDS ORDERED: Nitroglycerin 2% Ointment Foilpak UD TOP STA (12:04)
--- NOTE | 2018-03-13 12:11 | ED PDOC ---
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 PCP: Dr Littlejohn prior hx of right CVA (right arm/leg weakness), pt can ambulate unassisted pt lives alone no recent cardiac checkup pt with hx of cardiomeagly Time/Duration: < week (3 days) Symptom Onset: Sudden Symptom Course: Unchanged, Worsening Quality: Other (pinch/stabbing pain) Severity Level: 6, Moderate Activities at Onset: Rest Context: Home Past Medical History - Provider Review Nursing Documentation Reviewed: Yes - Travel History Have you recently traveled outside [place] w/in the past 3 mons?: No - Past History Past History: No Previous - Infectious Disease Hx of Infectious Diseases: None - Tetanus Immunization Tetanus Immunization: Unknown - Reproductive Menopause: Yes Currently : No - Cardiac Hx Cardiac Disorders: Yes Hx Hypertension: Yes - Pulmonary Hx Respiratory Disorders: No - Neurological Hx Neurological Disorder: Yes HX Cerebrovascular Accident: Yes - HEENT Hx HEENT Disorder: (WEARS RX GLASSES FOR READING) Hx Epistaxis: Yes Other/Comment: Deviated septum - Renal Hx Renal Disorder: No - Endocrine/Metabolic Hx Endocrine Disorders: No - Hematological/Oncological Hx Blood Disorders: No - Integumentary Hx Dermatological Disorder: Yes Other/Comment: 3 fatty cysts removed from right parietal area - Musculoskeletal/Rheumatological Hx Musculoskeletal Disorders: No Hx Falls: No - Gastrointestinal Hx Gastrointestinal Disorders: No - Genitourinary/Gynecological Hx Genitourinary Disorders: No - Psychiatric Hx Psychophysiologic Disorder: Yes (SLEEPLESSNESS) Hx Anxiety: Yes Hx Depression: No Hx Emotional Abuse: No Hx Physical Abuse: No Hx Substance Use: No - Past Surgical History Past Surgical History: No Previous - Surgical History Other/Comment: 3 fatty cysts removed from right parietal area - Anesthesia Hx Anesthesia: Yes Hx Anesthesia Reactions: No - Suicidal Assessment Feels Threatened In Home Enviroment: No Family/Social History - Physician Review Nursing Documentation Reviewed: Yes Family/Social History: No Known Family HX Smoking Status: Never Smoked Hx Alcohol Use: No Hx Substance Use: No Hx Substance Use Treatment: No Allergies/Home Meds Allergies/Adverse Reactions: Allergies No Known Allergies Allergy (Verified 03/13/18 11:57) Home Medications: Home Meds Medication Instructions Recorded Confirmed Alprazolam [Xanax] 0.5 mg PO BID 04/12/13 03/13/18 Aliskiren/Hydrochlorothiazide 1 tab PO DAILY 04/05/14 03/13/18 [Tekturna Hct 300 mg-12.5 mg] Aspirin [Aspirin Chewable] 81 mg PO DAILY 03/13/18 03/13/18 Zolpidem [Ambien] 10 mg PO HS 03/13/18 03/13/18 amLODIPine [Norvasc] 10 mg PO DAILY 03/13/18 03/13/18 clonazePAM [Klonopin] 1 mg PO BID 03/13/18 03/13/18 Review of Systems - Review of Systems Constitutional: Normal Eyes: Normal ENT: Normal Respiratory: SOB Cardiovascular: Chest Pain. absent: Palpitations Gastrointestinal: Normal Genitourinary Female: Normal Musculoskeletal: Normal Skin: Normal Neurological: Normal. absent: Headache, Dizziness Endocrine: Normal Hemo/Lymphatic: Normal Psychiatric: Normal Physical Exam Vital Signs Reviewed: Yes Vital Signs Temp Pulse Resp BP Pulse Ox 03/13/18 12:20 98.1 F 79 17 116/78 98 03/13/18 11:54 98.9 F 88 18 147/89 96 Temperature: Afebrile Blood Pressure: Hypertensive Pulse: Regular Respiratory Rate: Normal Appearance: Positive for: Well-Appearing, Non-Toxic, Uncomfortable, Other ( mildly uncomfortable, alert/awake, GCS = 15, oriented x 3, NAD, cooperative, resting in bed) Pain Distress: None Mental Status: Positive for: Alert and Oriented X 3 - Systems Exam Head: Present: Atraumatic, Normocephalic Pupils: Present: PERRL, Other (no nystagmus, no photophobia, sclera anicteric, visual field intact b/l) Extroacular Muscles: Present: EOMI Conjunctiva: Present: Normal Ears: Present: Normal Mouth: Present: Moist Mucous Membranes, Normal Lips, Normal Tounge, Normal Teeth. No: Drooling Pharnyx: Present: Normal Nose (External): Present: Atraumatic Nose (Internal): Present: Normal Inspection Neck: Present: Normal Range of Motion, Trachea Midline, Other (no midline tenderness). No: Meningeal Signs, MIDLINE TENDERNESS, Paraspinal Tenderness Respiratory/Chest: Present: Clear to Auscultation, Good Air Exchange, Other ( CTA b/l, no w/r/r, no accessory muscle use noted, no tachypenia). No: Respiratory Distress, Accessory Muscle Use Cardiovascular: Present: Regular Rate and Rhythm, Normal S1, S2. No: Murmurs Abdomen: Present: Normal Bowel Sounds, Other (well nourished female, no focal tenderness, no marin's sign, no mcburney's point tenderness, no masses/rebound/ guarding/rigidity) Back: Present: Normal Inspection. No: CVA Tenderness, Midline Tenderness, Paraspinal Tenderness Upper Extremity: Present: Normal Inspection, Normal ROM, NORMAL PULSES, Neurovascularly Intact, Other (right arm weakness (due to previous stroke); no gross deformities, intact ROM) Lower Extremity: Present: Normal Inspection, NORMAL PULSES, Normal ROM, Neurovascularly Intact, Other (+ decr strength right leg (due to previous stroke), no gross deformities; neurovasc intact b/l) Neurological: Present: GCS=15, CN II-XII Intact, Speech Normal Skin: Present: Warm, Normal Color, Other (cap refill < 1sec, no ulcerations, no petechiae, no rashes) Psychiatric: Present: Alert, Oriented x 3 Medical Decision Making ED Course and Treatment: 03/13/18 12:12 Impression: left sided chest pain i have consider all the differential diagnosis regarding pt's chief medical complaints/clinical findings, including but are not limited to: left sided chest pain A/P: left sided chest pain, r/o acs - labs - iv - acs eval - xray - supportive care - observe/reevaluation 03/13/18 13:13 pt felt improved after nitro, currently no chest pain 03/13/18 14:[address] 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 Case discussed with Dr. Horan, agrees with ED mgt/txt, agrees with admission/ observation 03/13/18 14:15 pt is made aware of her medical results pt agrees with admission/observation vital signs are currently stable pt is resting pt is awaiting for hospital bed placement Re-evaluation Time: 13:13 Reassessment Condition: Improved - Lab Interpretations Lab Results: 03/13/18 12:30 03/13/18 12:30 Lab Results 03/13/18 12:30: Sodium 141, Potassium 3.5 L, Chloride 102, Carbon Dioxide 29, Anion Gap 14, BUN 21, Creatinine 1.0, Est GFR ( Amer) > 60, Est GFR (Non- Af Amer) 58, Random Glucose 112 H, Calcium 10.0, Magnesium 2.0, Total Bilirubin 0.6, AST 29, ALT 39, Alkaline Phosphatase 48, Lactate Dehydrogenase 422, Total Creatine Kinase 65, Troponin I < 0.01, NT-Pro-B Natriuret Pep < 11.1, Total Protein 8.5 H, Albumin 4.7, Globulin 3.7, Albumin/Globulin Ratio 1.3 03/13/18 12:30: Urine Color Yellow, Urine Appearance Clear, Urine pH 6.0, Ur Specific [place] 1.010, Urine Protein Negative, Urine Glucose (UA) Negative, Urine Ketones Negative, Urine Blood Negative, Urine Nitrate Negative, Urine Bilirubin Negative, Urine Urobilinogen 0.2, Ur Leukocyte Esterase Small H, Urine RBC Negative, Urine WBC 1 - 3, Ur Epithelial Cells 0 - 2, Urine Bacteria Trace 03/13/18 12:30: PT 13.1 H, INR 1.14 H, APTT 32.4 03/13/18 12:30: WBC 7.3, RBC 5.15, Hgb 15.3, Hct 43.9, MCV 85.2, MCH 29.7, MCHC 34.9, RDW 13.3, Plt Count 272, MPV 8.6, Gran % 66.7, Lymph % (Auto) 25.0, [place] % (Auto) 5.7, Eos % (Auto) 2.1, Baso % (Auto) 0.5, Gran # 4.87, Lymph # (Auto) 1.8, [place] # (Auto) 0.4, Eos # (Auto) 0.2, Baso # (Auto) 0.04 I have reviewed the lab results: Yes Interpretation: All labs normal - RAD Interpretation Narrative RAD Interpretations (Text): 03/13/18 13:15 HISTORY: chest pain COMPARISON: 03/21/2017 FINDINGS: LUNGS: No active pulmonary disease. PLEURA: No significant pleural effusion identified, no pneumothorax apparent. CARDIOVASCULAR: Normal. OSSEOUS STRUCTURES: No significant abnormalities. VISUALIZED UPPER ABDOMEN: Normal. OTHER FINDINGS: None. IMPRESSION: No active disease. Radiology Orders: 03/13/18 12:04 CHEST PORTABLE [RAD] Stat Sack Repairer: Radiologist - EKG Interpretation EKG Interpretation (Text): 03/13/18 13:15 Sinus rhythm at 60 bpm, LAD, no ectopy, no st-t changes, BORDERLINE EKG; unchanged compare with old ekg 03/2014 Interpreted by ED Physician: Yes Type: 12 lead EKG Comparison: Similar to previous EKG - Medication Orders Current Medication Orders: Discontinued Medications Aspirin (Aspirin) 325 mg PO STAT STA Stop: 03/13/18 12:05 Last Admin: 03/13/18 12:34 Dose: 325 mg Nitroglycerin (Nitro-Bid 2% Oint) 1 ea TOP STAT STA Stop: 03/13/18 12:05 Last Admin: 03/13/18 12:34 Dose: 1 ea - Scribe Statement The provider has reviewed the documentation as recorded by the Jacoby Sauceda All medical record entries made by the Jacoby were at my direction and personally dictated by me. I have reviewed the chart and agree that the record accurately reflects my personal performance of the history, physical exam, medical decision making, and the department course for this patient. I have also personally directed, reviewed, and agree with the discharge instructions and disposition. Disposition/Present on Arrival - Present on Arrival Any Indicators Present on Arrival: No History of DVT/PE: No History of Uncontrolled Diabetes: No Urinary Catheter: No History of Decub. Ulcer: No History Surgical Site Infection Following: None - Disposition Have Diagnosis and Disposition been Completed?: Yes Diagnosis: Chest pain with low risk of acute coronary syndrome Disposition: HOSPITALIZED Disposition Time: 14:05 Patient Plan: Admission, Observation Patient Problems: Current Active Problems Problem Status Onset Chest pain with low risk of acute coronary syndrome Acute Condition: STABLE
[2018-03-13 12:46] LABS: BASO # 0.04 K/mm3 (0.0-2.0); BASO % 0.5 % (0.0-3.0); EOS # 0.2 (0.0-0.7); EOS % 2.1 % (1.5-5.0); GRAN # 4.87 (1.4-6.5); GRAN % 66.7 % (50.0-68.0); HEMOGLOBIN 15.3 g/dL (12.0-16.0); LYMPH # 1.8 (1.2-3.4); MEAN CELL VOLUME 85.2 fl (80.0-105.0); MEAN CORPUSCULAR HEMOGLOBIN 29.7 pg (25.0-35.0); MEAN CORPUSCULAR HGB CONC 34.9 g/dl (31.0-37.0); MEAN PLATELET VOLUME 8.6 fl (7.0-11.0); MONO # 0.4 (0.1-0.6); MONO % 5.7 % (1.0-6.0); RBC 5.15 10^6/uL (3.5-6.1); RED CELL DISTRIBUTION WIDTH 13.3 % (11.5-14.5); WHITE BLOOD COUNT 7.3 10^3/ul (4.5-11.0)
[2018-03-13 12:54] LABS: URINE BILIRUBIN NEGATIVE (NEGATIVE); URINE BLOOD NEGATIVE (NEGATIVE); URINE GLUCOSE (UA) NEGATIVE (NEGATIVE); URINE LEUKOCYTE ESTERASE SMALL Leu/uL (NEGATIVE); URINE PROTEIN NEGATIVE mg/dL (<30 mg/dL); URINE UROBILINOGEN 0.2 E.U./dL (<1 E.U./dL)
[2018-03-13 12:55] LABS: URINE APPEARANCE CLEAR (CLEAR); URINE COLOR YELLOW (YELLOW)
[2018-03-13 12:57] LABS: ALB/GLOB RATIO 1.3 (1.1-1.8); ALBUMIN 4.7 g/dL (3.0-4.8); ALT/SGPT 39 U/L (7-56); AST/SGOT 29 U/L (14-36); BLOOD UREA NITROGEN 21 mg/dL (7-21); GFR AFRICAN-AMERICAN > 60; GFR NON-AFRICAN AMERICAN 58
--- NOTE | 2018-03-13 12:58 | RAD ---
HISTORY: chest pain COMPARISON: 03/21/2017 FINDINGS: LUNGS: No active pulmonary disease. PLEURA: No significant pleural effusion identified, no pneumothorax apparent. CARDIOVASCULAR: Normal. OSSEOUS STRUCTURES: No significant abnormalities. VISUALIZED UPPER ABDOMEN: Normal. OTHER FINDINGS: None. IMPRESSION: No active disease.
[2018-03-13 13:00] LABS: INR 1.14 (0.93-1.08); PROTHROMBIN TIME 13.1 SECONDS (9.4-12.5)
[2018-03-13 13:01] LABS: PARTIAL THROMBOPLASTIN TIME 32.4 Seconds (25.1-36.5)
[2018-03-13 13:08] LABS: URINE BACTERIA TRACE (NEG); URINE EPITHELIAL CELLS 0 - 2 /hpf (0-5); URINE RBC NEGATIVE /hpf (0-2)
[2018-03-13 13:09] LABS: TROPONIN I < 0.01 ng/mL
[2018-03-13 13:18] LABS: B-TYPE NATRIURETIC PEPTIDE < 11.1 pg/mL (0-450)
[2018-03-13 18:45] LABS: HDL CHOLESTEROL 57 mg/dL (29-60)
[2018-03-13 18:56] LABS: LDL CHOLESTEROL 139 mg/dL (0-129)
[2018-03-13 18:57] LABS: TROPONIN I < 0.01 ng/mL
--- NOTE | 2018-03-13 19:45 | CARD ---
APPROVED REPORT EKG Measurement Heart [id number] <Conclusion> Sinus rhythm with marked sinus arrhythmia Otherwise normal ECG
[2018-03-13 21:01] VITALS: BMI 33.3
[2018-03-13] MEDS ORDERED: Pneumococcal 23-Valent Vaccine IM ONE (21:01)
[2018-03-14 06:03] VITALS: O2SAT 96
[2018-03-14 07:37] LABS: ALB/GLOB RATIO 1.2 (1.1-1.8); ALT/SGPT 35 U/L (7-56); AST/SGOT 33 U/L (14-36); BLOOD UREA NITROGEN 17 mg/dL (7-21); CALCIUM 10.1 mg/dL (8.4-10.5); GFR AFRICAN-AMERICAN > 60; GFR NON-AFRICAN AMERICAN 58; HDL CHOLESTEROL 53 mg/dL (29-60)
[2018-03-14 07:44] LABS: TROPONIN I < 0.01 ng/mL
[2018-03-14 07:46] LABS: LDL CHOLESTEROL 142 mg/dL (0-129)
[2018-03-14 07:57] LABS: FREE T4 1.36 ng/dL (0.78-2.19)
--- NOTE | 2018-03-14 09:19 | CP.PCM.CON ---
History of Present Illness - History of Present Illness History of Present Illness: Sitting in bed, denies chest pain,denies shortness of breath, feels okay Reason for consultation: Cardiac evaluation, left sided chest pain with mild shortness of breath. history of right CVA History of present illness: A 57 year old female, obese, who came in to the ER due to chest pain on the left side intermittently for the past 3 days prior to admission. She claimed to have mild shortness of breath. history of right CVA, hypertension, deviated septum, anxiety. She claimed to have so much stress in her personal life. Lives alone. Seen and examined by me and Dr. Christina Review of Systems - Constitutional Constitutional: As Per HPI - EENT Additional comments: wears glasses,deviated septum - Cardiovascular Cardiovascular: Chest Pain Additional comments: hypertension - Respiratory Respiratory: Dyspnea Additional comments: asthma, sneezing due to allergy to cat - Gastrointestinal Additional comments: denies nausea,denies vomiting - Genitourinary Additional comments: denies problems - Neurological Additional comments: CVA,right side weakness - Psychiatric Psychiatric: Anxiety Past Patient History - Infectious Disease Hx of Infectious Diseases: None - Tetanus Immunizations Tetanus Immunization: Unknown - Past Social History Smoking Status: Never Smoked - CARDIAC Hx Cardiac Disorders: Yes Hx Hypertension: Yes - PULMONARY Hx Respiratory Disorders: No - NEUROLOGICAL Hx Neurological Disorder: Yes HX Cerebrovascular Accident: Yes (right sided weakness) Hx Dizziness: Yes - HEENT Hx HEENT Problems: Yes (WEARS RX GLASSES FOR READING) Hx Epistaxis: Yes Other/Comment: Deviated septum - RENAL Hx Chronic Kidney Disease: No - ENDOCRINE/METABOLIC Hx Endocrine Disorders: No - HEMATOLOGICAL/ONCOLOGICAL Hx Blood Disorders: No - INTEGUMENTARY Hx Dermatological Problems: Yes Other/Comment: 3 fatty cysts removed from right parietal area - MUSCULOSKELETAL/RHEUMATOLOGICAL Hx Musculoskeletal Disorders: No Hx Falls: Yes - GASTROINTESTINAL Hx Gastrointestinal Disorders: No - GENITOURINARY/GYNECOLOGICAL Hx Genitourinary Disorders: No - PSYCHIATRIC Hx Psychophysiologic Disorder: Yes (SLEEPLESSNESS) Hx Anxiety: Yes Hx Depression: No Hx Emotional Abuse: No Hx Physical Abuse: No Hx Substance Use: No - SURGICAL HISTORY Hx Surgeries: Yes Other/Comment: 3 fatty cysts removed from right parietal area - ANESTHESIA Hx Anesthesia: Yes Hx Anesthesia Reactions: No Meds Allergies/Adverse Reactions: Allergies Allergy/AdvReac Type Severity Reaction Status Date / Time No Known Allergies Allergy Verified 03/13/18 18:44 - Medications Medications: Current Medications Alprazolam (Xanax) 0.5 mg PO BID [facility] PRN Reason: Protocol Last Admin: 03/14/18 06:25 Dose: 0.5 mg Amlodipine Besylate (Norvasc) 10 mg PO DAILY [facility] Last Admin: 03/14/18 06:25 Dose: 10 mg Aspirin (Aspirin Chewable) 81 mg PO DAILY [facility] Last Admin: 03/13/18 17:08 Dose: Not Given Clonazepam (Klonopin) 1 mg PO BID [facility] PRN Reason: Protocol Last Admin: 03/13/18 18:20 Dose: 1 mg Clonidine HCl (Catapres) 0.1 mg PO BID [facility] Last Admin: 03/14/18 06:26 Dose: 0.1 mg Zolpidem Tartrate (Ambien) 10 mg PO HS [facility] PRN Reason: Protocol Last Admin: 03/13/18 22:53 Dose: 10 mg Results - Vital Signs Recent Vital Signs: Last Vital Signs Temp 98.1 F 03/14/18 06:00 Pulse 74 03/14/18 06:26 Resp 20 03/14/18 06:00 BP 135/74 03/14/18 06:26 Pulse Ox 96 03/14/18 06:00 - Labs Result Diagrams: 03/13/18 12:30 03/14/18 06:30 Labs: Laboratory Results - last 24 hr 03/13/18 03/14/18 03/14/18 18:25 06:30 06:30 Sodium 143 Potassium 3.6 Chloride 102 Carbon Dioxide 25 Anion Gap 20 BUN 17 Creatinine 1.0 Est GFR ( Amer) > 60 Est GFR (Non-Af Amer) 58 Random Glucose 96 Calcium 10.1 Total Bilirubin 1.0 AST 33 ALT 35 Alkaline Phosphatase 60 Lactate Dehydrogenase 529 Total Creatine Kinase 66 Troponin I < 0.01 < 0.01 Total Protein 9.2 H Albumin 5.0 H Globulin 4.3 Albumin/Globulin Ratio 1.2 Triglycerides 91 117 Cholesterol 213 H 228 H LDL Cholesterol Direct 139 H 142 H HDL Cholesterol 57 53 Free T4 1.36 TSH 3rd Generation 3.59 Assessment & Plan - Assessment and Plan (Free Text) Assessment: A 57 year old female, obese, who came in to the ER due to chest pain on the left side intermittently for the past 3 days prior to admission. She claimed to have mild shortness of breath. history of right CVA, hypertension, deviated septum, anxiety. She claimed to have so much stress in her personal life. Lives alone. Plan: Atypical chest pain Negative troponins Will order Echo to evaluate LV function 12 lead EKG done- Sinus rhythm with markes sinus arrythmia Chart reviewed and no cardiac work up done in [facility] On Clonidine 0.1 mg BID, ASA 81 mg daily,Norvasc 10 mg daily On Xanax for anxiety Continue current medications Continue current treatment Will follow up Thank you for giving us the opportunity to take care Ambreen Alexandra - Date & Time Date: 03/14/18 Time: 07:10
[2018-03-14 11:55] VITALS: BP 128/78; PULSE 76; RESP 18; TEMP 98.7
--- NOTE | 2018-03-14 15:38 | HP ---
CHIEF COMPLAINT AND HISTORY OF PRESENT ILLNESS: This is a 57-year-old female, who is coming in to the hospital complaining of substernal chest pain. She said the pain was about 05/10. She said that there was mild shortness of breath. No palpitations. No nausea. No vomiting. No abdominal pain or back pain. No dysuria or frequency. No nocturia. She says she has been having lots of stress at home for the past few months and it has been getting worse. She has been having these episodes. REVIEW OF SYMPTOMS: All other review of symptoms are within normal limits except that was mentioned. PAST MEDICAL HISTORY: 1. History of CVA. 2. Hypertension. 3. Dyslipidemia. SOCIAL HISTORY: She does not smoke, drink or use drugs. FAMILY HISTORY: Noncontributory. HOME MEDICATIONS: Have been reviewed. She is on Xanax, Tekturna, aspirin, Ambien, Norvasc, Klonopin. PHYSICAL EXAMINATION: VITAL SIGNS: She has a temperature of 98.1, pulse of 84, blood pressure is 135/74, respirations 20, O2 saturation 96%. Height is 5 feet 5. Weight is 195 pounds. BMI is 32. GENERAL: The patient lying in bed, uncomfortable, and in no acute distress. HEENT: Atraumatic and normocephalic. Anicteric sclerae. Moist mucosa. [place] conjunctivae. No oral lesions. NECK: No JVD, anterior and posterior adenopathy, thyromegaly, or bruits. CARDIOVASCULAR: S1 and S2 regular. No murmur, rubs, or gallop. LUNGS: Clear to auscultation bilaterally. No wheezes, rales, or rhonchi. ABDOMEN: Bowel sounds are positive. Soft, nontender and nondistended. No hepatosplenomegaly. No rebound and no guarding EXTREMITIES: No cyanosis, clubbing, or edema. NEUROLOGIC: No facial asymmetry. Tongue is midline. No uvula deviation. Power is 5/5 upper extremity and lower extremity. Sensation intact in upper extremity and lower extremity. PSYCHIATRIC: She is awake, alert and oriented x3. No anxiety or depression. She has normal affect. GENITOURINARY: No CVA tenderness. VASCULAR: 2+ pulses in the carotid pulses and pedal pulses. SKIN: No erythema or nodules SPINE: Shows normal curvature. A chest x-ray done shows no active disease. ASSESSMENT: 1. Chest pain. 2. Hypertension. 3. Obese with a body mass index of 32. 4. Dyslipidemia. 5. Anxiety. PLAN: The patient is currently admitted for evaluation of the chest pain. The patient had troponin done x3, which were negative. She had had a cholesterol that was 228. The patient's blood pressure is controlled. She is on Norvasc. She is on Klonopin for anxiety. She was given aspirin. She was seen by Dr. Christina. I did speak to him. The patient is going to be discharged home today and follow up as an outpatient for possible stress test. She was advised to follow up with the primary care doctor as well. Discharge home. CONDITION: Stable. ACTIVITIES: Increase as tolerated. Wes Jeronimo MD
== END 2018-03-14 13:39 | disposition home or self-care (01) ==
LOC: ED 11:00 → ERH 14:20 → 2RNO 17:13
PROVIDERS: ADMIT Internal Medicine; ATTEND Internal Medicine
DX: R07.89 Other chest pain (principal); I10 Essential (primary) hypertension; E78.5 Hyperlipidemia, unspecified; Z86.73 Personal history of transient ischemic attack (TIA), and cerebral infarction without residual deficits; E66.9 Obesity, unspecified; Z68.32 Body mass index [BMI] 32.0-32.9, adult; F41.9 Anxiety disorder, unspecified; J34.2 Deviated nasal septum; Z91.048 Other nonmedicinal substance allergy status; I69.351 Hemiplegia and hemiparesis following cerebral infarction affecting right dominant side
CPT/HCPCS: 36415; 71045; 80053; 80061; 81001; 82550; 83036; 83615; 83735; 83880; 84439; 84443; 84484; 85025; 85610; 85730; 87086; 93005; 99285; G0378